=== PATIENT | female | born 1960 | race Hispanic/Latino ===

== ENCOUNTER 2022-05-17 15:33 | Emergency (ER) | payer OTHER ==
[~2022-05-17] VITALS: Ht 149.9 cm; Wt 56.7 kg
[2022-05-17 16:41] LABS: BASOPHILS % 0.3 % (0.0-1.0); EOSINOPHILS # (AUTO) 0.1 (0.0-0.4); EOSINOPHILS % 1.1 % (0.0-6.0); HEMATOCRIT 39.3 % (34.2-44.1); HEMOGLOBIN 12.9 g/dL (12.0-16.0); LYMPHOCYTES # (AUTO) 1.7 (1.0-3.2); LYMPHOCYTES % 26.3 % (18.0-39.1); MEAN CORPUSCULAR HEMOGLOBIN 33.5 pg (28-32); MEAN CORPUSCULAR HGB CONC 32.8 g/dL (31-35); MEAN CORPUSCULAR VOLUME 102.1 fL (81-99); MONOCYTES # (AUTO) 0.9 (0.2-0.8); MONOCYTES % 12.9 % (4.4-11.3); NEUTROPHILS # (AUTO) 3.9 (2.1-6.9); NEUTROPHILS % 58.8 % (38.7-80.0); PLATELET COUNT 257 x10e3/uL (140-360); RED BLOOD COUNT 3.85 x10e6/uL (3.6-5.1); RED CELL DISTRIBUTION WIDTH 11.8 % (11.7-14.4)
[2022-05-17 16:50] LABS: CLARITY,URINE SL CLOUDY (CLEAR); COLOR,URINE YELLOW (YELLOW); KETONES,URINE NEGATIVE (NEGATIVE); LEUKOCYTE ESTERASE ,URINE NEGATIVE (NEGATIVE); NITRITE,URINE NEGATIVE (NEGATIVE); PROTEIN,URINE DIPSTICK NEGATIVE (NEGATIVE); URINE UROBILINOGEN 1 mg/dL (0.2 - 1)
[2022-05-17 16:53] LABS: INR 0.92; PROTHROMBIN TIME 12.6 seconds (11.9-14.5)
[2022-05-17 16:54] LABS: PARTIAL THROMBOPLASTIN TIME 26.4 seconds (23.8-35.5)
[2022-05-17 16:59] LABS: EPITHELIAL CELLS,URINE RARE /LPF; WBC,URINE (MAN) 0-5 /HPF (0-5)
[2022-05-17 17:03] LABS: ALBUMIN 3.1 g/dL (3.5-5.0); ALBUMIN/GLOBULIN RATIO 0.9 (0.8-2.0); ANION GAP 15.4 mmol/L (8-16); CALCIUM 8.5 mg/dL (8.4-10.2); CREATININE, SERUM 0.63 mg/dL (0.57-1.11); POTASSIUM 3.4 mmol/L (3.5-5.1)
[2022-05-17 17:09] LABS: CREATINE KINASE MB 0.3 ng/mL (0-5.0)
== END 2022-05-17 18:20 | disposition home or self-care (01) ==
LOC: ER 15:52
DX: G40.909 Epilepsy, unspecified, not intractable, without status epilepticus (principal); I10 Essential (primary) hypertension; G31.09 Other frontotemporal neurocognitive disorder; F02.80 Dementia in other diseases classified elsewhere, unspecified severity, without behavioral disturbance, psychotic disturbance, mood disturbance, and anxiety; G10 Huntington's disease; Z20.822 Contact with and (suspected) exposure to COVID-19; R94.31 Abnormal electrocardiogram [ECG] [EKG]
CPT/HCPCS: 36415; 70450; 71045; 80053; 80164; 81001; 82550; 82553; 84484; 85025; 85610; 85730; 87086; 93005; 99284; U0002

== ENCOUNTER 2023-05-08 11:51 | Inpatient (IN) | payer OTHER ==
[~2023-05-08] VITALS: Ht 149.9 cm; Wt 57.2 kg
[2023-05-08] VITALS (11 sets, daily range): BP systolic 93–150; BP diastolic 59–77; PULSE 68–93; RESP 18–30; TEMP 98.5–99.9; O2SAT 90–99
[2023-05-08] MEDS ORDERED: LACTATED RINGER'S 1,000 ML IV ONE (12:15)
[2023-05-08 12:34] LABS: BASOPHILS # (AUTO) 0.1 (0.0-0.1); BASOPHILS % 0.4 % (0.0-1.0); EOSINOPHILS # (AUTO) 0.2 (0.0-0.4); HEMATOCRIT 40.8 % (34.2-44.1); HEMOGLOBIN 14.3 g/dL (12.0-16.0); LYMPHOCYTES # (AUTO) 1.2 (1.0-3.2); LYMPHOCYTES % 6.5 % (18.0-39.1); MEAN CORPUSCULAR HEMOGLOBIN 31.9 pg (28-32); MEAN CORPUSCULAR VOLUME 91.1 fL (81-99); MONOCYTES # (AUTO) 1.9 (0.2-0.8); MONOCYTES % 10.5 % (4.4-11.3); NEUTROPHILS # (AUTO) 14.4 (2.1-6.9); PLATELET COUNT 308 x10e3/uL (140-360); RED BLOOD COUNT 4.48 x10e6/uL (3.6-5.1); RED CELL DISTRIBUTION WIDTH 12.4 % (11.7-14.4); WHITE BLOOD COUNT 17.76 x10e3/uL (4.8-10.8)
[2023-05-08 12:40] LABS: CLARITY,URINE CLOUDY (CLEAR); COLOR,URINE YELLOW (YELLOW); LEUKOCYTE ESTERASE ,URINE NEGATIVE (NEGATIVE); NITRITE,URINE NEGATIVE (NEGATIVE); PH,URINE 6.5 (5 - 7); PROTEIN,URINE DIPSTICK 1+ (NEGATIVE)
[2023-05-08 12:41] LABS: BILIRUBIN,URINE SMALL (NEGATIVE); GLUCOSE, URINE NEGATIVE (NEGATIVE); KETONES,URINE 2+ (NEGATIVE); URINE UROBILINOGEN 0.2 mg/dL (0.2 - 1)
[2023-05-08 12:50] LABS: ANION GAP 18.3 mmol/L (8-16); CALCIUM 8.4 mg/dL (8.4-10.2); CREATININE, SERUM 0.71 mg/dL (0.57-1.11)
[2023-05-08 12:54] LABS: INFLUENZAE A&B ANTIGEN (RAPID) NEGATIVE (NEGATIVE)
[2023-05-08 12:55] LABS: BACTERIA,URINE FEW /HPF; EPITHELIAL CELLS,URINE RARE /LPF; STREPTOCOCCUS GRP A ANTIGEN NEGATIVE (NEGATIVE); WBC,URINE (MAN) 0-5 /HPF (0-5)
[2023-05-08] MEDS ORDERED: ALBUTEROL/IPRATROPIUM 3 ML NEB NEB ONE (13:15)
[2023-05-08 13:28] LABS: POTASSIUM 3.3 mmol/L (3.5-5.1)
[2023-05-08] MEDS ORDERED: SODIUM CHLORIDE 0.9% 1000ML 1,000 ML IV SCH (13:30)
[2023-05-08] MEDS ORDERED: ONDANSETRON HCL INJ 2MG/ML 2ML 2 MG/ML VIAL IV PRN (15:15)
[2023-05-08] MEDS ORDERED: ACETAMINOPHEN 325 MG SUPP PR PRN (15:15)
[2023-05-08] MEDS ORDERED: POTASSIUM CHLORIDE 20MEQ/100ML 200 ML IV ONE (15:30)
[2023-05-08 16:00] LABS: ABG HCO3 29 mmol/L (22-26); ABG PCO2 38 mmHg (35-45); ABG PO2 51 mmHg (80-105); ABG TCO2 31
[2023-05-08] MEDS: LACTATED RINGER'S 1,000 ML INJ SCH (17:13)
[2023-05-08] MEDS: ENOXAPARIN 30 MG/0.3 ML SYR SC SCH (17:49)
[2023-05-08] MEDS ORDERED: RISPERDAL1 MG PO (19:37)
[2023-05-08] MEDS ORDERED: ACETAMINOPHEN650 MG RC (19:37)
[2023-05-08] MEDS ORDERED: AMLODIPINE BESYL5 MG PO (19:37)
[2023-05-08] MEDS ORDERED: SENOKOT-S TABL1 EACH PO (19:37)
[2023-05-08] MEDS ORDERED: DULCOLAX10 MG PR (19:37)
[2023-05-08] MEDS ORDERED: ATIVAN1 MG PO (19:37)
[2023-05-08] MEDS ORDERED: MYLANTA MAXIMUM10 ML PO (19:37)
[2023-05-08] MEDS ORDERED: DICYCLOMINE HCL10 MG PO (19:37)
[2023-05-08] MEDS ORDERED: SERTRALINE HCL50 MG PO (19:37)
[2023-05-08] MEDS ORDERED: MYSOLINE50 MG PO (19:37)
[2023-05-08] MEDS ORDERED: DEPAKOTE ER500 MG PO (19:37)
[2023-05-08] MEDS ORDERED: ULTRAM 50MG50 MG PO (19:37)
[2023-05-08] MEDS ORDERED: LORATADINE10 MG PO (19:37)
[2023-05-08] MEDS ORDERED: OMEPRAZOLE40 MG PO (19:37)
[2023-05-08] MEDS ORDERED: ACETAMINOPHEN325 M1 PO (19:37)
[2023-05-09] VITALS (27 sets, daily range): BP systolic 125–160; BP diastolic 63–85; PULSE 72–90; RESP 18–32; TEMP 99.4–100.9; O2SAT 78–99
[2023-05-09] MEDS: LACTATED RINGER'S 1,000 ML INJ SCH ×2 (06:20→17:36)
[2023-05-09 06:41] LABS: BASOPHILS % 0.1 % (0.0-1.0); HEMATOCRIT 36.7 % (34.2-44.1); HEMOGLOBIN 12.3 g/dL (12.0-16.0); LYMPHOCYTES % 7.2 % (18.0-39.1); MEAN CORPUSCULAR HEMOGLOBIN 31.7 pg (28-32); MEAN CORPUSCULAR HGB CONC 33.5 g/dL (31-35); MEAN CORPUSCULAR VOLUME 94.6 fL (81-99); MONOCYTES % 14.1 % (4.4-11.3); NEUTROPHILS # (AUTO) 11.3 (2.1-6.9); NEUTROPHILS % 78.3 % (38.7-80.0); PLATELET COUNT 254 x10e3/uL (140-360); RED BLOOD COUNT 3.88 x10e6/uL (3.6-5.1); RED CELL DISTRIBUTION WIDTH 12.5 % (11.7-14.4); WHITE BLOOD COUNT 14.47 x10e3/uL (4.8-10.8)
[2023-05-09 07:35] LABS: ANION GAP 14.8 mmol/L (8-16); CALCIUM 8.2 mg/dL (8.4-10.2); CREATININE, SERUM 0.54 mg/dL (0.57-1.11); POTASSIUM 3.8 mmol/L (3.5-5.1)
[2023-05-09] MEDS ORDERED: BISACODYL 10 MG SUPP PR PRN (09:15)
[2023-05-09] MEDS ORDERED: TRAMADOL HCL 50 MG TAB PO PRN (09:15)
[2023-05-09] MEDS ORDERED: LORAZEPAM 1 MG TAB PO PRN (09:15)
[2023-05-09] MEDS ORDERED: RISPERIDONE 0.5 MG TAB PO SCH (10:00)
[2023-05-09] MEDS: Doxycycline IV 100 MG in SODIUM CHLORIDE 0.9% 100 ML IV SCH ×2 (11:03→22:08)
[2023-05-09] MEDS: DICYCLOMINE HCL 10 MG CAP PO SCH ×2 (11:30→16:30)
[2023-05-09] MEDS: DEPAKOTE DELAYED-RELEASE TAB 500 MG PO SCH (17:00)
[2023-05-09] MEDS: ENOXAPARIN 30 MG/0.3 ML SYR SC SCH (17:36)
[2023-05-10] VITALS (19 sets, daily range): BP systolic 125–162; BP diastolic 53–83; PULSE 64–88; RESP 18–27; TEMP 98.5–99.9; O2SAT 92–100
[2023-05-10 06:33] LABS: BASOPHILS % 0.3 % (0.0-1.0); HEMATOCRIT 36.4 % (34.2-44.1); HEMOGLOBIN 12.6 g/dL (12.0-16.0); MEAN CORPUSCULAR HEMOGLOBIN 31.4 pg (28-32); MEAN CORPUSCULAR HGB CONC 34.6 g/dL (31-35); MEAN CORPUSCULAR VOLUME 90.8 fL (81-99); MONOCYTES # (AUTO) 1.5 (0.2-0.8); MONOCYTES % 15.9 % (4.4-11.3); NEUTROPHILS # (AUTO) 6.8 (2.1-6.9); NEUTROPHILS % 72.3 % (38.7-80.0); PLATELET COUNT 238 x10e3/uL (140-360); RED BLOOD COUNT 4.01 x10e6/uL (3.6-5.1); RED CELL DISTRIBUTION WIDTH 11.9 % (11.7-14.4); WHITE BLOOD COUNT 9.45 x10e3/uL (4.8-10.8)
[2023-05-10 07:15] LABS: ALBUMIN 2.4 g/dL (3.5-5.0); ALBUMIN/GLOBULIN RATIO 0.6 (0.8-2.0); ANION GAP 17.9 mmol/L (8-16); BILIRUBIN,TOTAL 0.3 mg/dL (0.2-1.2); CALCIUM 8.2 mg/dL (8.4-10.2); CREATININE, SERUM 0.51 mg/dL (0.57-1.11); TOTAL PROTEIN 6.6 g/dL (6.5-8.1)
[2023-05-10] MEDS: LACTATED RINGER'S 1,000 ML INJ SCH ×2 (07:15→20:03)
[2023-05-10 07:25] LABS: POTASSIUM 2.9 mmol/L (3.5-5.1)
[2023-05-10] MEDS: DICYCLOMINE HCL 10 MG CAP PO SCH ×3 (07:30→16:30)
[2023-05-10] MEDS: AMLODIPINE BESYLATE 5 MG TAB PO SCH (09:00)
[2023-05-10] MEDS ORDERED: PANTOPRAZOLE SOD 40 MG TABEC PO SCH (09:00)
[2023-05-10] MEDS: DEPAKOTE DELAYED-RELEASE TAB 500 MG PO SCH ×2 (09:00→17:00)
[2023-05-10] MEDS: PRIMIDONE 50 MG TAB PO SCH (09:00)
[2023-05-10] MEDS ORDERED: LORATADINE 10 MG TAB PO SCH (09:00)
[2023-05-10] MEDS: SENNA-S TABLET PO SCH (09:00)
[2023-05-10] MEDS: SERTRALINE HCL 50 MG TAB PO SCH (09:00)
[2023-05-10] MEDS: POTASSIUM CHLORIDE 20MEQ/100ML 100 ML IV SCH ×4 (09:20→19:59)
[2023-05-10] MEDS: Doxycycline IV 100 MG in SODIUM CHLORIDE 0.9% 100 ML IV SCH (15:34)
[2023-05-10] MEDS: ENOXAPARIN 30 MG/0.3 ML SYR SC SCH (17:34)
[2023-05-11] VITALS (26 sets, daily range): BP systolic 122–162; BP diastolic 65–105; PULSE 70–87; RESP 16–27; TEMP 98.6–99.2; O2SAT 89–100
[2023-05-11] MEDS: Doxycycline IV 100 MG in SODIUM CHLORIDE 0.9% 100 ML IV SCH ×2 (03:56→16:16)
[2023-05-11] MEDS: LACTATED RINGER'S 1,000 ML INJ SCH (05:31)
[2023-05-11 06:51] LABS: BASOPHILS % 0.4 % (0.0-1.0); EOSINOPHILS # (AUTO) 0.1 (0.0-0.4); EOSINOPHILS % 0.6 % (0.0-6.0); HEMATOCRIT 35.5 % (34.2-44.1); HEMOGLOBIN 12.3 g/dL (12.0-16.0); LYMPHOCYTES # (AUTO) 1.3 (1.0-3.2); LYMPHOCYTES % 16.5 % (18.0-39.1); MEAN CORPUSCULAR HEMOGLOBIN 31.9 pg (28-32); MEAN CORPUSCULAR HGB CONC 34.6 g/dL (31-35); MEAN CORPUSCULAR VOLUME 92.2 fL (81-99); MONOCYTES # (AUTO) 1.1 (0.2-0.8); MONOCYTES % 13.2 % (4.4-11.3); NEUTROPHILS # (AUTO) 5.5 (2.1-6.9); NEUTROPHILS % 68.9 % (38.7-80.0); PLATELET COUNT 262 x10e3/uL (140-360); RED BLOOD COUNT 3.85 x10e6/uL (3.6-5.1); RED CELL DISTRIBUTION WIDTH 12.2 % (11.7-14.4); WHITE BLOOD COUNT 7.96 x10e3/uL (4.8-10.8)
[2023-05-11] MEDS: DICYCLOMINE HCL 10 MG CAP PO SCH ×3 (07:30→16:54)
[2023-05-11 07:39] LABS: ALBUMIN 2.4 g/dL (3.5-5.0); ALBUMIN/GLOBULIN RATIO 0.6 (0.8-2.0); ANION GAP 15.5 mmol/L (8-16); BILIRUBIN,TOTAL 0.4 mg/dL (0.2-1.2); CALCIUM 8.4 mg/dL (8.4-10.2); CREATININE, SERUM 0.52 mg/dL (0.57-1.11); POTASSIUM 3.5 mmol/L (3.5-5.1); TOTAL PROTEIN 6.5 g/dL (6.5-8.1)
[2023-05-11] MEDS ORDERED: POTASSIUM CHLORIDE 20MEQ/100ML 200 ML IV ONE (08:30)
[2023-05-11] MEDS: SENNA-S TABLET PO SCH (09:00)
[2023-05-11] MEDS ORDERED: LACTATED RINGER'S 1,000 ML INJ ONE (11:00)
[2023-05-11] MEDS: VALPROATE SOD INJ 500 MG in SODIUM CHLORIDE 0.9% 100 ML INJ SCH ×2 (11:33→20:30)
[2023-05-11] MEDS ORDERED: IOPAMIDOL 370 MG/ML 100 ML INFUS..BTL INJ ONE (14:18)
[2023-05-11] MEDS: SERTRALINE HCL 50 MG TAB PO SCH (16:14)
[2023-05-11] MEDS: PRIMIDONE 50 MG TAB PO SCH (16:14)
[2023-05-11] MEDS: AMLODIPINE BESYLATE 5 MG TAB PO SCH (16:15)
[2023-05-11] MEDS: LOPERAMIDE HCL 2 MG CAP PO PRN (16:18)
[2023-05-11] MEDS: ENOXAPARIN 30 MG/0.3 ML SYR SC SCH (16:54)
[2023-05-11] MEDS: VANCOMYCIN 250MG/5ML ORAL SOLN PO SCH (20:31)
[2023-05-12] VITALS (21 sets, daily range): BP systolic 104–143; BP diastolic 51–96; PULSE 59–80; RESP 15–22; TEMP 98–99; O2SAT 92–99
[2023-05-12] MEDS: VANCOMYCIN 250MG/5ML ORAL SOLN PO SCH ×5 (00:07→23:28)
[2023-05-12] MEDS: VALPROATE SOD INJ 500 MG in SODIUM CHLORIDE 0.9% 100 ML INJ SCH ×2 (03:47→20:11)
[2023-05-12] MEDS: Doxycycline IV 100 MG in SODIUM CHLORIDE 0.9% 100 ML IV SCH (04:00)
[2023-05-12 05:44] LABS: BASOPHILS % 0.4 % (0.0-1.0); EOSINOPHILS # (AUTO) 0.2 (0.0-0.4); HEMATOCRIT 34.8 % (34.2-44.1); HEMOGLOBIN 11.9 g/dL (12.0-16.0); LYMPHOCYTES # (AUTO) 1.5 (1.0-3.2); LYMPHOCYTES % 15.2 % (18.0-39.1); MEAN CORPUSCULAR HEMOGLOBIN 31.5 pg (28-32); MEAN CORPUSCULAR HGB CONC 34.2 g/dL (31-35); MEAN CORPUSCULAR VOLUME 92.1 fL (81-99); MONOCYTES # (AUTO) 1.1 (0.2-0.8); MONOCYTES % 11.1 % (4.4-11.3); NEUTROPHILS % 70.6 % (38.7-80.0); PLATELET COUNT 339 x10e3/uL (140-360); RED BLOOD COUNT 3.78 x10e6/uL (3.6-5.1); RED CELL DISTRIBUTION WIDTH 12.1 % (11.7-14.4)
[2023-05-12 06:14] LABS: MAGNESIUM 1.9 MG/DL (1.3-2.1); PHOSPHORUS 3.1 MG/DL (2.3-4.7)
[2023-05-12 06:35] LABS: THYROID STIMULATING HORMONE 1.386 uIU/mL (0.350-4.940)
[2023-05-12] MEDS: DICYCLOMINE HCL 10 MG CAP PO SCH ×3 (07:25→16:46)
[2023-05-12] MEDS: PRIMIDONE 50 MG TAB PO SCH (08:04)
[2023-05-12] MEDS: SENNA-S TABLET PO SCH (08:05)
[2023-05-12] MEDS: AMLODIPINE BESYLATE 5 MG TAB PO SCH (08:05)
[2023-05-12] MEDS: SERTRALINE HCL 50 MG TAB PO SCH (08:05)
[2023-05-12 08:08] LABS: ALBUMIN 2.3 g/dL (3.5-5.0); ALBUMIN/GLOBULIN RATIO 0.6 (0.8-2.0); ANION GAP 14.6 mmol/L (8-16); BILIRUBIN,TOTAL 0.3 mg/dL (0.2-1.2); CALCIUM 8.6 mg/dL (8.4-10.2); CREATININE, SERUM 0.48 mg/dL (0.57-1.11); POTASSIUM 3.6 mmol/L (3.5-5.1); TOTAL PROTEIN 6.3 g/dL (6.5-8.1)
[2023-05-12] MEDS ORDERED: DOXYCYCLINE HYCLATE TABLET 100 MG TAB PO SCH (09:00)
[2023-05-12] MEDS ORDERED: GUAIFENESIN 600 MG TAB PO PRN (16:45)
[2023-05-12] MEDS: ENOXAPARIN 30 MG/0.3 ML SYR SC SCH (16:46)
[2023-05-13] VITALS (14 sets, daily range): BP systolic 123–152; BP diastolic 61–75; PULSE 18–74; RESP 15–22; TEMP 97–98.7; O2SAT 90–99
[2023-05-13] MEDS: VANCOMYCIN 250MG/5ML ORAL SOLN PO SCH ×4 (06:06→23:52)
[2023-05-13] MEDS: DICYCLOMINE HCL 10 MG CAP PO SCH ×3 (07:30→18:39)
[2023-05-13] MEDS: SENNA-S TABLET PO SCH (09:00)
[2023-05-13] MEDS: LOPERAMIDE HCL 2 MG CAP PO PRN (10:34)
[2023-05-13] MEDS: AMLODIPINE BESYLATE 5 MG TAB PO SCH (10:35)
[2023-05-13] MEDS: PANTOPRAZOLE SOD 40 MG TABEC PO SCH (10:35)
[2023-05-13] MEDS: PRIMIDONE 50 MG TAB PO SCH (10:35)
[2023-05-13] MEDS: SERTRALINE HCL 50 MG TAB PO SCH (10:36)
[2023-05-13] MEDS: VALPROATE SOD INJ 500 MG in SODIUM CHLORIDE 0.9% 100 ML INJ SCH ×2 (11:09→20:29)
[2023-05-13] MEDS: ENOXAPARIN 30 MG/0.3 ML SYR SC SCH (18:39)
[2023-05-14] VITALS (12 sets, daily range): BP systolic 124–155; BP diastolic 62–87; PULSE 54–85; RESP 17–23; TEMP 98–98.9; O2SAT 93–98
[2023-05-14] MEDS: VANCOMYCIN 250MG/5ML ORAL SOLN PO SCH ×3 (05:19→17:56)
[2023-05-14] MEDS: DICYCLOMINE HCL 10 MG CAP PO SCH ×3 (08:21→17:56)
[2023-05-14] MEDS: PANTOPRAZOLE SOD 40 MG TABEC PO SCH (08:21)
[2023-05-14] MEDS: SERTRALINE HCL 50 MG TAB PO SCH (08:55)
[2023-05-14] MEDS: LACTOBACILLUS ACIDOPHILUS CAPSULE PO SCH ×2 (08:55→17:56)
[2023-05-14] MEDS: LOPERAMIDE HCL 2 MG CAP PO PRN ×3 (08:55→21:03)
[2023-05-14] MEDS: AMLODIPINE BESYLATE 5 MG TAB PO SCH (08:55)
[2023-05-14] MEDS: SENNA-S TABLET PO SCH (08:56)
[2023-05-14] MEDS: PRIMIDONE 50 MG TAB PO SCH (08:56)
[2023-05-14] MEDS: VALPROATE SOD INJ 500 MG in SODIUM CHLORIDE 0.9% 100 ML INJ SCH ×3 (09:16→21:15)
[2023-05-14] MEDS: MUPIROCIN 2% OINT 22 GM TUBE TOP SCH ×2 (09:16→17:56)
[2023-05-14] MEDS: ENOXAPARIN 30 MG/0.3 ML SYR SC SCH (17:30)
[2023-05-15] MEDS: VANCOMYCIN 250MG/5ML ORAL SOLN PO SCH ×5 (06:00→23:52)
[2023-05-15 06:18] VITALS: BP 150/68; PULSE 78; RESP 18; TEMP 98.2; O2SAT 98
[2023-05-15 06:19] LABS: BASOPHILS % 0.4 % (0.0-1.0); EOSINOPHILS # (AUTO) 0.1 (0.0-0.4); EOSINOPHILS % 2.5 % (0.0-6.0); HEMATOCRIT 34.9 % (34.2-44.1); HEMOGLOBIN 11.7 g/dL (12.0-16.0); LYMPHOCYTES # (AUTO) 1.9 (1.0-3.2); LYMPHOCYTES % 35.1 % (18.0-39.1); MEAN CORPUSCULAR HEMOGLOBIN 31.5 pg (28-32); MEAN CORPUSCULAR HGB CONC 33.5 g/dL (31-35); MEAN CORPUSCULAR VOLUME 93.8 fL (81-99); MONOCYTES # (AUTO) 0.7 (0.2-0.8); MONOCYTES % 12.8 % (4.4-11.3); NEUTROPHILS # (AUTO) 2.7 (2.1-6.9); NEUTROPHILS % 47.9 % (38.7-80.0); PLATELET COUNT 501 x10e3/uL (140-360); RED BLOOD COUNT 3.72 x10e6/uL (3.6-5.1); RED CELL DISTRIBUTION WIDTH 11.9 % (11.7-14.4); WHITE BLOOD COUNT 5.53 x10e3/uL (4.8-10.8)
[2023-05-15 06:29] LABS: ANION GAP 11.1 mmol/L (8-16); CALCIUM 8.8 mg/dL (8.4-10.2); CREATININE, SERUM 0.51 mg/dL (0.57-1.11)
[2023-05-15 06:36] LABS: POTASSIUM 3.1 mmol/L (3.5-5.1)
[2023-05-15 06:44] VITALS: PULSE 72; RESP 21; O2SAT 95
[2023-05-15] MEDS: SENNA-S TABLET PO SCH (09:00)
[2023-05-15 09:10] VITALS: BP 153/76; PULSE 61; RESP 20; TEMP 98.2; O2SAT 96
[2023-05-15] MEDS: LACTOBACILLUS ACIDOPHILUS CAPSULE PO SCH ×2 (09:55→17:14)
[2023-05-15] MEDS: MUPIROCIN 2% OINT 22 GM TUBE TOP SCH ×2 (09:55→17:14)
[2023-05-15] MEDS: DICYCLOMINE HCL 10 MG CAP PO SCH ×3 (09:55→17:14)
[2023-05-15] MEDS: SERTRALINE HCL 50 MG TAB PO SCH (09:55)
[2023-05-15] MEDS: PANTOPRAZOLE SOD 40 MG TABEC PO SCH (09:55)
[2023-05-15] MEDS: LOPERAMIDE HCL 2 MG CAP PO PRN (09:55)
[2023-05-15] MEDS: PRIMIDONE 50 MG TAB PO SCH (09:55)
[2023-05-15] MEDS: AMLODIPINE BESYLATE 5 MG TAB PO SCH (09:56)
[2023-05-15] MEDS ORDERED: VALPROATE SOD INJ 500 MG in SODIUM CHLORIDE 0.9% 100 ML INJ SCH (10:30)
[2023-05-15] MEDS ORDERED: POTASSIUM CHLORIDE 10MEQ EA PO ONE (11:00)
[2023-05-15] MEDS ORDERED: ONDANSETRON HCL 4 MG ORAL DISINTEGRATING TAB PO PRN (14:30)
[2023-05-15] MEDS: DEPAKOTE DELAYED-RELEASE TAB 500 MG PO SCH (17:14)
[2023-05-15] MEDS: MAGNESIUM OXIDE 400 MG TAB PO SCH (17:14)
[2023-05-15] MEDS: ENOXAPARIN 30 MG/0.3 ML SYR SC SCH (17:15)
[2023-05-15 19:27] VITALS: PULSE 62; RESP 18; O2SAT 98
[2023-05-15 20:00] VITALS: BP 143/64; PULSE 60; RESP 18; TEMP 98.7; O2SAT 100
[2023-05-15 21:00] VITALS: BP 143/64; PULSE 60; RESP 18; TEMP 98.7; O2SAT 100
[2023-05-16] VITALS (8 sets, daily range): BP systolic 136–152; BP diastolic 58–70; PULSE 60–74; RESP 17–20; TEMP 97.8–98.8; O2SAT 93–100
[2023-05-16] MEDS: VANCOMYCIN 250MG/5ML ORAL SOLN PO SCH ×3 (05:49→17:45)
[2023-05-16 05:54] LABS: BASOPHILS % 0.4 % (0.0-1.0); EOSINOPHILS # (AUTO) 0.1 (0.0-0.4); EOSINOPHILS % 1.4 % (0.0-6.0); HEMATOCRIT 34.7 % (34.2-44.1); HEMOGLOBIN 11.7 g/dL (12.0-16.0); LYMPHOCYTES # (AUTO) 2.2 (1.0-3.2); LYMPHOCYTES % 29.8 % (18.0-39.1); MEAN CORPUSCULAR HGB CONC 33.7 g/dL (31-35); MEAN CORPUSCULAR VOLUME 94.8 fL (81-99); MONOCYTES # (AUTO) 0.7 (0.2-0.8); MONOCYTES % 9.9 % (4.4-11.3); NEUTROPHILS # (AUTO) 4.2 (2.1-6.9); NEUTROPHILS % 57.5 % (38.7-80.0); PLATELET COUNT 536 x10e3/uL (140-360); RED BLOOD COUNT 3.66 x10e6/uL (3.6-5.1); RED CELL DISTRIBUTION WIDTH 12.1 % (11.7-14.4); WHITE BLOOD COUNT 7.29 x10e3/uL (4.8-10.8)
[2023-05-16 06:19] LABS: ANION GAP 11.6 mmol/L (8-16); BLOOD UREA NITROGEN < 5 mg/dL (7-26); BUN/CREATININE RATIO 10 (6-25); CALCIUM 8.9 mg/dL (8.4-10.2); CARBON DIOXIDE 30 mmol/L (22-29); CHLORIDE 102 mmol/L (98-107); CREATININE, SERUM 0.52 mg/dL (0.57-1.11); EST GLOMERULAR FILTRATION RATE 106 ML/MIN (>=60); GLUCOSE 108 mg/dL (74-118); POTASSIUM 3.6 mmol/L (3.5-5.1); SODIUM 140 mmol/L (136-145)
[2023-05-16] MEDS: PANTOPRAZOLE SOD 40 MG TABEC PO SCH (07:30)
[2023-05-16] MEDS: AMLODIPINE BESYLATE 5 MG TAB PO SCH (09:00)
[2023-05-16] MEDS: MUPIROCIN 2% OINT 22 GM TUBE TOP SCH ×2 (09:00→17:45)
[2023-05-16] MEDS: LACTOBACILLUS ACIDOPHILUS CAPSULE PO SCH ×2 (10:48→17:45)
[2023-05-16] MEDS: SERTRALINE HCL 50 MG TAB PO SCH (10:49)
[2023-05-16] MEDS: MAGNESIUM OXIDE 400 MG TAB PO SCH ×2 (10:50→17:45)
[2023-05-16] MEDS: SENNA-S TABLET PO SCH (10:50)
[2023-05-16] MEDS: DICYCLOMINE HCL 10 MG CAP PO SCH ×3 (10:53→17:45)
[2023-05-16] MEDS: PRIMIDONE 50 MG TAB PO SCH (10:54)
[2023-05-16] MEDS: DEPAKOTE DELAYED-RELEASE TAB 500 MG PO SCH ×2 (10:54→17:45)
[2023-05-16] MEDS: ENOXAPARIN 30 MG/0.3 ML SYR SC SCH (17:46)
[2023-05-17] VITALS (7 sets, daily range): BP systolic 149–161; BP diastolic 57–76; PULSE 59–76; RESP 16–19; TEMP 97.7–98.8; O2SAT 95–100
[2023-05-17] MEDS: VANCOMYCIN 250MG/5ML ORAL SOLN PO SCH ×3 (00:07→12:49)
[2023-05-17] MEDS: LACTOBACILLUS ACIDOPHILUS CAPSULE PO SCH (09:36)
[2023-05-17] MEDS: SENNA-S TABLET PO SCH (09:36)
[2023-05-17] MEDS: PRIMIDONE 50 MG TAB PO SCH (09:36)
[2023-05-17] MEDS: AMLODIPINE BESYLATE 5 MG TAB PO SCH (09:36)
[2023-05-17] MEDS: DICYCLOMINE HCL 10 MG CAP PO SCH ×2 (09:36→12:49)
[2023-05-17] MEDS: MUPIROCIN 2% OINT 22 GM TUBE TOP SCH (09:36)
[2023-05-17] MEDS: DEPAKOTE DELAYED-RELEASE TAB 500 MG PO SCH (09:37)
[2023-05-17] MEDS: SERTRALINE HCL 50 MG TAB PO SCH (09:37)
[2023-05-17] MEDS: MAGNESIUM OXIDE 400 MG TAB PO SCH (09:37)
[2023-05-17] MEDS: PANTOPRAZOLE SOD 40 MG TABEC PO SCH (09:37)
[2023-05-17] MEDS: LOPERAMIDE HCL 2 MG CAP PO PRN (12:49)
== END 2023-05-17 18:25 | disposition hospice, home (50) | DRG 871 ==
LOC: ER 12:12 → ERHOLD 13:30 → ICU 18:45 → MED/SURG3 05-14 13:53
PROVIDERS: ADMIT Internal Medicine; ATTEND Internal Medicine
PROC: 02HV33Z Insertion of Infusion Device into Superior Vena Cava, Percutaneous Approach (ICD-10-PCS; principal; 2023-05-08)
PROC: 3E04329 Introduction of Other Anti-infective into Central Vein, Percutaneous Approach (ICD-10-PCS; principal; 2023-05-08)
PROC: B548ZZA Ultrasonography of Superior Vena Cava, Guidance (ICD-10-PCS; principal; 2023-05-08)
PROC: 4A133R1 Monitoring of Arterial Saturation, Peripheral, Percutaneous Approach (ICD-10-PCS; principal; 2023-05-08)
PROC: 5A09357 Assistance with Respiratory Ventilation, Less than 24 Consecutive Hours, Continuous Positive Airway Pressure (ICD-10-PCS; 2023-05-08)
DX: A41.9 Sepsis, unspecified organism (principal); G93.41 Metabolic encephalopathy; J18.1 Lobar pneumonia, unspecified organism; J96.01 Acute respiratory failure with hypoxia; E44.0 Moderate protein-calorie malnutrition; D84.81 Immunodeficiency due to conditions classified elsewhere; G10 Huntington's disease; J90 Pleural effusion, not elsewhere classified; R53.81 Other malaise; Z66 Do not resuscitate; E86.0 Dehydration; Z68.25 Body mass index [BMI] 25.0-25.9, adult; R53.1 Weakness; G31.09 Other frontotemporal neurocognitive disorder; E87.6 Hypokalemia; R13.12 Dysphagia, oropharyngeal phase; F02.80 Dementia in other diseases classified elsewhere, unspecified severity, without behavioral disturbance, psychotic disturbance, mood disturbance, and anxiety; K21.9 Gastro-esophageal reflux disease without esophagitis; F41.9 Anxiety disorder, unspecified; G40.909 Epilepsy, unspecified, not intractable, without status epilepticus; Y95 Nosocomial condition; R19.7 Diarrhea, unspecified; Z20.822 Contact with and (suspected) exposure to COVID-19
CPT/HCPCS: 36415; 36569; 36600; 70551; 71045; 71260; 74230; 80048; 80053; 80164; 81001; 82607; 82805; 82948; 83036; 83518; 83605; 83735; 84100; 84443; 85025; 87040; 87070; 87086; 87400; 94660; 94799; 95819; 99252; 99285; J0696; J1650; J2543; J3480; J7050; Q9967; U0002